=== PATIENT | female | born 1995 | race African-American/Black ===

== ENCOUNTER 2024-06-14 09:28 | Emergency (ER) | payer MEDICAID ==
[~2024-06-14] VITALS: Ht 167.6 cm; Wt 71.0 kg
[2024-06-14 09:30] VITALS: O2SAT 99
[2024-06-14 09:56] VITALS: BP 158/68; PULSE 80; RESP 16; TEMP 36.6; O2SAT 95
[2024-06-14] MEDS ORDERED: VALA10002 MT (10:51)
== END 2024-06-14 12:03 | disposition home or self-care (01) ==
LOC: ER 09:28
DX: B00.1 Herpesviral vesicular dermatitis (principal); J45.909 Unspecified asthma, uncomplicated; Z88.0 Allergy status to penicillin; Z88.1 Allergy status to other antibiotic agents; Z88.2 Allergy status to sulfonamides
CPT/HCPCS: 99283